=== PATIENT | female | born 1980 | race Two or more races ===

== ENCOUNTER 2021-05-08 08:40 | Emergency (ER) | payer OTHER ==
[~2021-05-08] VITALS: Ht 157.5 cm; Wt 69.9 kg
[2021-05-08] MEDS ORDERED: MONTELUKAST SOD10 MG PO (08:50)
[2021-05-08] MEDS ORDERED: FLOVENT HFA10.6 GM (08:51)
== END 2021-05-08 12:04 | disposition home or self-care (01) ==
LOC: ER 08:40
DX: R53.1 Weakness (principal); R07.89 Other chest pain

== ENCOUNTER 2021-05-08 12:00 | Outpatient (CLI) | payer OTHER ==
[~2021-05-08 12:00] MED LIST: FLOVENT HFA10.6 GM; MONTELUKAST SOD10 MG PO
== END 2021-05-08 12:30 | disposition home or self-care (01) ==
LOC: PPH VACUNA 12:00
PROVIDERS: ATTEND Emergency Medicine Pediatric Emergency Medicine
DX: Z23 Encounter for immunization (principal)